=== PATIENT | female | born 1990 | race African-American/Black ===

== ENCOUNTER 2016-05-22 21:28 | Emergency (ER) | payer MEDICAID, OTHER ==
[~2016-05-22] VITALS: Ht 165.1 cm; Wt 112.5 kg
[~2016-05-22 21:28] MED LIST: AZITHROMYCIN250 MG ORAL; CIPRO500 MG PO; CYCLOBENZAPRINE10 MG ORAL; DOXYCYCLINE MO100 MG ORAL; MACROBID100 MG ORAL; METRONIDAZOLE500 MG ORAL; NKM; PEPCID20 MG ORAL; PRENATAL 19 TA1 EAC1 PO; PROMETHAZINE-D118 ML ORAL; ZITHROMAX250 MG ORAL
[2016-05-22 23:06] VITALS: BP 107/73
[2016-05-22 23:33] VITALS: BP 107/73
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
== END 2016-05-22 23:33 | disposition left against medical advice (07) ==
LOC: EMR 22:14
DX: O26.892 Other specified pregnancy related conditions, second trimester (principal); Z3A.00 Weeks of gestation of pregnancy not specified; R10.30 Lower abdominal pain, unspecified; V43.52XA Car driver injured in collision with other type car in traffic accident, initial encounter; Y92.488 Other paved roadways as the place of occurrence of the external cause; Z88.0 Allergy status to penicillin
CPT/HCPCS: 99282

== ENCOUNTER 2016-11-14 00:15 | Emergency (ER) | payer MEDICAID ==
[~2016-11-14] VITALS: Ht 165.1 cm; Wt 109.8 kg
[2016-11-14 00:23] VITALS: BP 98/62
[2016-11-14] MEDS ORDERED: TYLENOL COLD &1 EAC1 PO (00:48)
[2016-11-14 01:08] VITALS: BP 98/62
--- NOTE | 2016-11-14 03:43 | Emergency Room Report ---
History of Present Illness General Chief Complaint: Sore Throat Source: Patient Present Illness HPI 26-year-old female presents to ED for evaluation. Patient states for one day she has had runny nose, cough and congestion. Denies any fevers or chills. States that many members of the family have similar symptoms. Denies any sore throat or ear ache. Cough is productive with yellowish phlegm. No other aggravating or relieving factors. Denies any other associated symptoms Allergies: Coded Allergies: PENICILLINS (Unverified Allergy, Severe, 08/29/14) Patient History Past Medical History: none Past Surgical History: none Pertinent Family History: none Social History: Denies: alcohol use, drug use, smoking Last Menstrual Period: 2 weeks ago Now: No Immunizations: UTD Reviewed Nursing Documentation: PMH: Agreed, PSxH: Agreed Nursing Documentation-PMH Past Medical History: No Stated History Hx Hypertension: No Hx Diabetes: No Hx Dialysis: No - UTI 05/2015 Review of Systems All Other Systems: negative except mentioned in HPI Physical Exam Vital Signs Date Time Temp Pulse Resp B/P Pulse Ox O2 Delivery O2 Flow Rate FiO2 11/14/16 00:19 98.2 73 18 98/62 98 Room Air Sp02 EP Interpretation: reviewed, normal General Appearance: no apparent distress, alert, GCS 15, non-toxic Head: normocephalic, atraumatic Eyes: bilateral eye PERRL, bilateral eye normal inspection ENT: hearing grossly normal, normal pharynx, no angioedema, normal voice Neck: full range of motion, supple/symm/no masses Respiratory: chest non-tender, lungs clear, normal breath sounds, speaking full sentences Cardiovascular #1: regular rate, rhythm, no edema Cardiovascular #2: 2+ carotid (R), 2+ carotid (L), 2+ radial (R), 2+ radial (L) , 2+ dorsalis pedis (R), 2+ dorsalis pedis (L) Gastrointestinal: normal bowel sounds, non tender, soft, non-distended, no guarding, no rebound Rectal: deferred Genitourinary: normal inspection, no CVA tenderness Musculoskeletal: back normal, gait/station normal, normal range of motion, non- tender Neurologic: alert, oriented x3, responsive, motor strength/tone normal, sensory intact, speech normal Psychiatric: judgement/insight normal, memory normal, mood/affect normal, no suicidal/homicidal ideation Reflexes: 3+ bicep (R), 3+ bicep (L), 3+ tricep (R), 3+ tricep (L), 3+ knee (R) , 3+ knee (L) Skin: normal color, no rash, warm/dry, well hydrated Lymphatic: no adenopathy Medical Decision Making Diagnostic Impression: Primary Impression: Upper respiratory infection Qualified Codes: J06.9 - Acute upper respiratory infection, unspecified ER Course Hospital Course 26year-old female presents to ED complaining of cough, runny nose with congestion Differential diagnoses include: URI, pharyngitis, otitis media, asthma Clinical course Patient placed on stretcher. After initial history, physical exam reveals a female in no acute distress. Bilateral TM unremarkable. No pharyngeal erythema. No tonsillar exudates. No lymphadenopathy. lungs clear. abdomen soft. Clinical findings consistent with URI. Reassurance given. treatment is supportive therapy Diagnosis - URI Stable and discharged home with Rx Tylenol cold/flu. Instructed to followup with PMD. Return to ED if symptoms recur or worsen Last Vital Signs Date Time Temp Pulse Resp B/P Pulse Ox O2 Delivery O2 Flow Rate FiO2 11/14/16 01:08 98.2 73 18 98/62 98 Room Air Status: improved Disposition: HOME, SELF-CARE Condition: Stable Scripts Phenylephrine/Dm/Acetaminop/Gg (TYLENOL COLD & FLU SEVERE CPLT) 1 Each Tablet 1 EACH PO Q4HR, #30 TAB Prov: AMISHA GARCIA M.D. 11/14/16 Referrals: [facility] (PCP) Patient Instructions: Upper Respiratory Infection, Adult, [id number] AMISHA GARCIA M.D. Nov 14, 2016 03:43
== END 2016-11-14 01:08 | disposition home or self-care (01) ==
LOC: EMR 00:36
DX: J06.9 Acute upper respiratory infection, unspecified (principal); Z88.0 Allergy status to penicillin
CPT/HCPCS: 99283

== ENCOUNTER 2017-05-24 18:41 | Emergency (ER) | payer MEDICAID ==
[~2017-05-24] VITALS: Ht 160 cm; Wt 117.9 kg
[~2017-05-24 18:41] MED LIST changes: +TYLENOL COLD &1 EAC1 PO
[2017-05-24] MEDS ORDERED: Lidocaine 1% MPF 10mg/ml 5ml INJ ONE (19:00)
[2017-05-24] MEDS ORDERED: BACITRACIN15 GM TOPIC (19:37)
[2017-05-24] MEDS ORDERED: IBUPROFEN600 MG ORAL (19:37)
[2017-05-24] MEDS ORDERED: Bacitracin Oint UD TOPIC ONE (19:45)
[2017-05-24 21:00] VITALS: BP 125/88
--- NOTE | 2017-05-24 22:11 | Emergency Room Report ---
History of Present Illness General Chief Complaint: Pain Source: Patient Present Illness HPI The patient is a 26-year-old female presenting for toe pain which began 2 weeks ago. She thinks she has ingrown toenails. Pain is a 6/10 dull ache to the nail folds of both big toes. She denies any injury, discharge, or bleeding. Pain does not radiate. She denies fever or chills Allergies: Coded Allergies: PENICILLINS (Unverified Allergy, Severe, 08/29/14) Patient History Past Medical History: see triage record Pertinent Family History: none Last Menstrual Period: 05/14/17 Now: No Reviewed Nursing Documentation: PMH: Agreed, PSxH: Agreed Nursing Documentation-PMH Hx Hypertension: No Hx Diabetes: No Review of Systems All Other Systems: negative except mentioned in HPI Physical Exam Vital Signs Date Time Temp Pulse Resp B/P (MAP) Pulse Ox O2 Delivery O2 Flow Rate FiO2 05/24/17 18:47 98.2 113 17 125/88 100 Room Air Sp02 EP Interpretation: reviewed, normal General Appearance: no apparent distress, alert, GCS 15, non-toxic Head: normocephalic, atraumatic Eyes: bilateral eye normal inspection, bilateral eye PERRL Musculoskeletal: back normal, gait/station normal, normal range of motion, non- tender Neurologic: alert, oriented x3, responsive, motor strength/tone normal, sensory intact, speech normal Psychiatric: judgement/insight normal, memory normal, mood/affect normal, no suicidal/homicidal ideation Skin: other - erythema to bilat 1st medial nailfolds Procedures Additional Procedure Procedure Narrative Partial toenail removal: Digital block was placed using 4mL of 1% lidocaine w/o epi. Area cleaned with betadine. Straight forceps and scissors used to remove and cut away medial portion of nail. Minimal bleeding controlled. Area again cleaned with NS and betadine. Bacitracin placed and wrapped with sterile dressing. The patient will be HI'ed home with pain medication and bacitracin. ER precautions given Medical Decision Making PA Attestation Dr. Walsh is my supervising physician. Patient management was discussed with my supervising physician Diagnostic Impression: Primary Impression: Ingrown nail of great toe of right foot Additional Impression: Ingrown nail of great toe of left foot ER Course The patient is a 26-year-old female presenting for toe pain which began 2 weeks ago. erythema to bilat 1st medial nailfold Partial toenail removal: Digital block was placed using 4mL of 1% lidocaine w/o epi. Area cleaned with betadine. Straight forceps and scissors used to remove and cut away medial portion of nail. Minimal bleeding controlled. Area again cleaned with NS and betadine. Bacitracin placed and wrapped with sterile dressing. [facility] pain medication and bacitracin. ER precautions given Last Vital Signs Date Time Temp Pulse Resp B/P (MAP) Pulse Ox O2 Delivery O2 Flow Rate FiO2 05/24/17 18:47 98.2 113 17 125/88 100 Room Air Status: improved Disposition: HOME, SELF-CARE Condition: Improved Scripts Ibuprofen* (MOTRIN*) 600 Mg Tablet 600 MG ORAL Q8H Y for For Pain, #30 TAB 0 Refills Prov: CELINA LANE 05/24/17 Bacitracin (Bacitracin) 28.4 Gm Oint...g. 1 APPLIC TOPIC THREE TIMES A DAY, #28 GM Prov: CELNIA LANE 05/24/17 Patient Instructions: Ingrown Toenail Additional Instructions: I discussed my findings with the patient. All questions and concerns have been answered. Treatment and medication compliance have been addressed. I advised the patient that they need to follow up with PMD in 3-5 days. Return to ED if symptoms worsen, new symptoms arise, or if needed for any reason. Patient verbalized understanding of discharge instructions. CELINA LANE May 24, 2017 22:11
== END 2017-05-24 21:00 | disposition home or self-care (01) ==
LOC: EMR 19:19
DX: L60.0 Ingrowing nail (principal); Z88.0 Allergy status to penicillin
CPT/HCPCS: 99284

== ENCOUNTER 2017-07-23 18:17 | Emergency (ER) | payer MEDICAID ==
[~2017-07-23] VITALS: Ht 165.1 cm; Wt 117.9 kg
[~2017-07-23 18:17] MED LIST changes: +BACITRACIN15 GM TOPIC; +IBUPROFEN600 MG ORAL
--- NOTE | 2017-07-23 18:52 | Emergency Room Report ---
History of Present Illness General Chief Complaint: Skin Rash/Abscess Source: Patient, Medical Record Present Illness HPI 26-year-old female presents to the emergency department complaining of 10 out of 10 in severity pain is localized to the medial aspect of the right hand times one day. Patient reports erythema, swelling and tenderness. Patient denies itching. Patient denies fevers or chills. Denies lesions/rashes elsewhere on the body. Denies new medications or body washes or creams. Denies swelling of the lips, tongue , throat or airway. Denies wheezing, or shortness of breath. Denies recent travel, recent illness or ill contacts. denies blisters, oral lesions, or sloughing of the skin. Pt. is right hand dominant. Allergies: Coded Allergies: PENICILLINS (Unverified Allergy, Severe, 08/29/14) Patient History Past Medical History: see triage record Past Surgical History: none Pertinent Family History: none Last Menstrual Period: 07/09/17 Now: No Reviewed Nursing Documentation: PMH: Agreed, PSxH: Agreed Nursing Documentation-PMH Past Medical History: No History, Except For Hx Hypertension: No Hx Diabetes: No Review of Systems All Other Systems: negative except mentioned in HPI Physical Exam Vital Signs Date Time Temp Pulse Resp B/P (MAP) Pulse Ox O2 Delivery O2 Flow Rate FiO2 07/23/17 18:24 98.3 93 18 93/64 99 Room Air 98.2 Sp02 EP Interpretation: reviewed, normal General Appearance: no apparent distress, alert, GCS 15, non-toxic Head: normocephalic, atraumatic ENT: hearing grossly normal, normal voice Neck: full range of motion Respiratory: lungs clear, normal breath sounds, speaking full sentences Cardiovascular #1: regular rate, rhythm, normal capillary refill Musculoskeletal: back normal, gait/station normal, normal range of motion, tender - ttp to the dorsum of the right hand on top of the erythematous area. Neurologic: alert, oriented x3, responsive, motor strength/tone normal, sensory intact, speech normal, grossly normal Psychiatric: judgement/insight normal Skin: no rash, warm/dry, well hydrated, other - Nonfluctuant 1 cm abscess to the dorsum of the right hand. Medical Decision Making PA Attestation Dr. Jules is my supervising Physician whom patient management has been discussed with. Diagnostic Impression: Primary Impression: Cellulitis Qualified Codes: L03.113 - Cellulitis of right upper limb Additional Impression: Cellulitis and abscess of hand ER Course 26-year-old female presents to the emergency department complaining of 10 out of 10 in severity pain is localized to the medial aspect of the right hand times one day. Patient reports erythema, swelling and tenderness. Patient denies itching. Patient denies fevers or chills. Denies lesions/rashes elsewhere on the body. Denies new medications or body washes or creams. Denies swelling of the lips, tongue , throat or airway. Denies wheezing, or shortness of breath. Denies recent travel, recent illness or ill contacts. denies blisters, oral lesions, or sloughing of the skin. Pt. is right hand dominant. Ddx considered but are not limited to cellulitis, abscess, cystic acne, necrotizing fasciitis, insect bite. Vital signs: are WNL, pt. is afebrile H&PE are most consistent with Nonfluctuant 1 cm abscess to the dorsum of the right hand. ORDERS: none required at this time, the diagnosis is clinical ED INTERVENTIONS: - no fluctuance and no significant induration. DISCHARGE: At this time pt. is stable for d/c to home. Will provide printed patient care instructions, and any necessary prescriptions. Care plan and follow up instructions have been discussed with the patient prior to discharge. Last Vital Signs Date Time Temp Pulse Resp B/P (MAP) Pulse Ox O2 Delivery O2 Flow Rate FiO2 07/23/17 18:24 98.3 93 18 93/64 99 Room Air 98.2 Disposition: HOME, SELF-CARE Condition: Stable Scripts Acetaminophen* (TYLENOL EXTRA STRENGTH*) 500 Mg Tablet 500 MG ORAL Q8H, #20 TAB 0 Refills Prov: Lynsey Rosario P.A. 07/23/17 Mupirocin* (MUPIROCIN*) 22 Gm Oint...g. 1 APPLIC TOPIC THREE TIMES A DAY, #22 GM Prov: Lynsey Rosario P.A. 07/23/17 Trimethoprim/Sulfamethoxazole 160/800* (BACTRIM DS TABLET*) 1 Each Tablet 1 TAB ORAL TWICE A DAY for 7 Days, #14 TAB Prov: Lynsey Rosario P.A. 07/23/17 Cephalexin* (KEFLEX*) 500 Mg Capsule 500 MG ORAL EVERY 12 HOURS for 7 Days, #14 CAP 0 Refills Prov: Lynsey Rosario 07/23/17 Referrals: [facility] (PCP) Departure Forms: Return to Work Return to Work Date: Jul 27, 2017 Work Restrictions: No Heavy Lifting Other Restrictions: limited use of right hand x 1 week, keep covered. Return to Full Activity: Aug 03, 2017 Patient Instructions: Abscess Additional Instructions: Take medications as directed. Follow up with a Primary Care Provider in 3-5 days, even if your symptoms have resolved. --Please review list of primary care clinics, if you do not already have a primary care provider Return sooner to ED if new symptoms occur, or current symptoms become worse. - Please note that this Emergency Department Report was dictated using [employer] technology software, occasionally this can lead to erroneous entry secondary to interpretation by the dictation equipment. Lynsey Rosario Jul 23, 2017 18:52
[2017-07-23] MEDS ORDERED: MUPIROCIN22 GM TOPIC (18:54)
[2017-07-23] MEDS ORDERED: CEPHALEXIN500 MG ORAL (18:54)
[2017-07-23] MEDS ORDERED: BACTRIM DS TAB1 EAC1 ORAL (18:54)
[2017-07-23] MEDS ORDERED: TYLENOL EXTRA500 MG ORAL (18:54)
[2017-07-23 19:09] VITALS: BP 124/83
== END 2017-07-23 19:09 | disposition home or self-care (01) ==
LOC: EMR 18:34
DX: L03.113 Cellulitis of right upper limb (principal); Z88.0 Allergy status to penicillin
CPT/HCPCS: 99284

== ENCOUNTER 2017-08-04 04:46 | Emergency (ER) | payer MEDICAID ==
[~2017-08-04] VITALS: Ht 165.1 cm; Wt 118.4 kg
[~2017-08-04 04:46] MED LIST changes: +BACTRIM DS TAB1 EAC1 ORAL; +CEPHALEXIN500 MG ORAL; +MUPIROCIN22 GM TOPIC; +TYLENOL EXTRA500 MG ORAL
[2017-08-04 05:05] VITALS: BP 130/79
[2017-08-04] MEDS ORDERED: Ketorolac 60mg Inj IM ONE (05:15)
[2017-08-04 05:26] LABS: APPEARANCE,URINE CLEAR; BILIRUBIN, URINE NEGATIVE (NEGATIVE); GLUCOSE, URINE (UA) NEGATIVE (NEGATIVE); KETONES,URINE NEGATIVE (NEGATIVE); LEUKOCYTE ESTERASE ,URINE NEGATIVE (NEGATIVE); NITRITE,URINE NEGATIVE (NEGATIVE); PH,URINE 5 (4.5-8.0); PROTEIN,URINE 1+ (NEGATIVE); UROBILINOGEN,URINE NORMAL MG/DL (0.0-1.0)
--- NOTE | 2017-08-04 05:31 | Emergency Room Report ---
History of Present Illness General Chief Complaint: Female Urogenital Problems Source: Patient Present Illness HPI Is a 26-year-old female with no significant past medical history. She presents with 2 chief complaint. First one is vaginal itching and dysuria for the last to 3 days. No discharge. No nausea no vomiting. History of Trichomonas. She is sexually active but uses protection all the time since the of her child. She is not breast-feeding. Second complaint is headache. Has been ongoing for 2 days. Midforehead. Throbbing in nature. No relief with Motrin or sleeping. No nausea no vomiting. Fever chills. No upper respiratory or infection. Allergies: Coded Allergies: PENICILLINS (Unverified Allergy, Severe, 08/29/14) Patient History Past Medical History: see triage record, old chart reviewed Past Surgical History: other Pertinent Family History: none Social History: Denies: smoking Last Menstrual Period: 3rd wk of Jun Now: No Immunizations: other Reviewed Nursing Documentation: PMH: Agreed, PSxH: Agreed Nursing Documentation-PMH Hx Hypertension: No Hx Diabetes: No Review of Systems Eye: Denies: eye pain, blurred vision ENT: Denies: ear pain, nose congestion, throat swelling Respiratory: Denies: cough, shortness of breath Cardiovascular: Denies: chest pain, palpitations Gastrointestinal: Denies: abdominal pain, diarrhea, nausea, vomiting Genitourinary: Reports: dysuria Musculoskeletal: Denies: back pain, joint pain Skin: Denies: rash Neurological: Reports: headache, Denies: numbness Endocrine: Denies: increased thirst, increased urine Hematologic/Lymphatic: Denies: easy bruising All Other Systems: negative except mentioned in HPI Physical Exam Vital Signs Date Time Temp Pulse Resp B/P (MAP) Pulse Ox O2 Delivery O2 Flow Rate FiO2 08/04/17 04:47 98.5 90 16 132/81 96 Room Air 98.4 vitals normal Sp02 EP Interpretation: reviewed, normal General Appearance: well appearing, no apparent distress, alert Head: normocephalic, atraumatic Eyes: bilateral eye PERRL, bilateral eye EOMI ENT: hearing grossly normal, normal pharynx Neck: full range of motion, supple, no meningismus Respiratory: chest non-tender, lungs clear, normal breath sounds Cardiovascular #1: regular rate, rhythm, no murmur Gastrointestinal: normal bowel sounds, non tender, no mass, no organomegaly, no bruit, non-distended Genitourinary: other - 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 External exam is normal. An toenail exam show whitish green discharge. No cervical motion tenderness. No adnexal tenderness. Musculoskeletal: back normal, gait/station normal, normal range of motion Psychiatric: mood/affect normal Skin: warm/dry Medical Decision Making Diagnostic Impression: Primary Impression: Acute cervicitis Additional Impression: Headache Qualified Codes: R51 - Headache ER Course Patient presents with a cervicitis. She does have a discharge with a lot of doctor on the [place]. No evidence of Trichomonas, bacterial vaginosis or yeast infection. We'll go ahead and treat for possible gonorrhea and chlamydia. Recommend outpatient testing for HIV, hepatitis, syphilis and other STD. As far as her headache, no evidence of meningitis, bleed, or neoplastic process. We'll discharge home. Last Vital Signs Date Time Temp Pulse Resp B/P (MAP) Pulse Ox O2 Delivery O2 Flow Rate FiO2 08/04/17 04:47 98.5 90 16 132/81 96 Room Air 98.4 Status: improved Disposition: HOME, SELF-CARE Condition: Stable Scripts Tramadol Hcl* (ULTRAM*) 50 Mg Tablet 50 MG ORAL Q6H Y for For Pain, #20 TAB 0 Refills Prov: KEDAR SIEGEL M.D. 08/04/17 Referrals: [facility] (PCP) Patient Instructions: Vaginitis Additional Instructions: Follow-up your doctor in 7 days. Recommend outpatient testing for HIV, hepatitis, syphilis and other STDs. Recommend Pap smear. Return if worse. KEDAR SIEGEL M.D. Aug 04, 2017 05:31
[2017-08-04 05:33] LABS: COLOR,URINE YELLOW
[2017-08-04] MEDS ORDERED: TRAMADOL HCL50 MG ORAL (05:51)
[2017-08-04 06:00] VITALS: BP 128/78
[2017-08-04] MEDS ORDERED: Azithromycin 250mg tab ORAL ONE (06:00)
[2017-08-04] MEDS ORDERED: Lidocaine 1% MPF 10mg/ml 5ml INJ ONE (06:00)
[2017-08-04 06:05] VITALS: BP 128/78
== END 2017-08-04 06:05 | disposition home or self-care (01) ==
LOC: EMR 05:09
DX: N72 Inflammatory disease of cervix uteri (principal); R51 Headache; Z88.0 Allergy status to penicillin
CPT/HCPCS: 81003; 81025; 87210; 96372; 99283; J0696; Q0144

== ENCOUNTER 2017-10-11 17:44 | Emergency (ER) | payer MEDICAID ==
[~2017-10-11] VITALS: Ht 162.6 cm; Wt 119.3 kg
[~2017-10-11 17:44] MED LIST changes: +TRAMADOL HCL50 MG ORAL
[2017-10-11] MEDS ORDERED: NKM (17:52)
[2017-10-11 18:04] VITALS: BP 93/59
--- NOTE | 2017-10-11 18:26 | Emergency Room Report ---
History of Present Illness General Chief Complaint: Skin Rash/Abscess Source: Patient Present Illness HPI 27 y.o. AA F, with no sig pmhx, here c/o 2 days of a painful pruretic swelling in right lateral upper arm and right lateral upper thigh. pt reports pain aching upon palpation of swelling, no radiation, no tingling/numbness, pain 4/10 , has not taken pain meds. 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 denies pus drainage from lesions. Allergies: Coded Allergies: PENICILLINS (Unverified Allergy, Severe, 08/29/14) Patient History Past Medical History: see triage record Past Surgical History: none Pertinent Family History: unable to obtain Last Menstrual Period: 10/05/2017 Now: No Immunizations: UTD Reviewed Nursing Documentation: PMH: Agreed; PSxH: Agreed Nursing Documentation-PMH Past Medical History: No Stated History Hx Hypertension: No Hx Diabetes: No Review of Systems All Other Systems: negative except mentioned in HPI Physical Exam Vital Signs Date Time Temp Pulse Resp B/P (MAP) Pulse Ox O2 Delivery O2 Flow Rate FiO2 10/11/17 17:47 98.4 102 18 93/59 94 Room Air 98.4 Sp02 EP Interpretation: reviewed, normal General Appearance: normal inspection, well appearing, no apparent distress, alert, GCS 15 Head: normocephalic Eyes: bilateral eye normal inspection, bilateral eye PERRL ENT: normal ENT inspection, hearing grossly normal, normal pharynx, no angioedema Neck: normal inspection, full range of motion, supple Respiratory: normal inspection, chest non-tender, lungs clear, normal breath sounds, no rhonchi, no respiratory distress, no retraction, no accessory muscle use, no wheezing Cardiovascular #1: normal inspection, normal peripheral pulses, regular rate, rhythm, no edema, no gallop, no murmur, no rub, normal capillary refill Cardiovascular #2: 2+ radial (R), 2+ radial (L), 2+ femoral (R), 2+ femoral (L) Gastrointestinal: normal inspection, normal bowel sounds, non tender, soft Rectal: deferred Genitourinary: deferred Musculoskeletal: back normal, inflammation - a 0.25cm bite on right lateral thigh, erythema and edema around it, no pus, also 0.25cm bite on right posteriorlateral upper arm, with surrounding erythema/edema, no pus Neurologic: normal inspection, alert, oriented x3, responsive Psychiatric: normal inspection, judgement/insight normal, mood/affect normal Skin: warm/dry, palpation normal, well hydrated, rash - a 0.25cm bite(possible spider bite) on right lateral thigh and one 0.25cm bite on right posteriolateral upper arm with surrounding edema and erythema, no abscess, no puss formation warm to touch, no mass Lymphatic: normal inspection, no adenopathy Medical Decision Making PA Attestation all dx, PE, orders, tx plans reviewed and approved by my supervising physician Dr. Walsh Reaction to Intervention: Improved Diagnostic Impression: Primary Impression: Insect bite Additional Impression: Skin infection ER Course 27 y.o. AA F, with no sig pmhx, here c/o 2 days of a painful pruretic swelling in right lateral upper arm and right lateral upper thigh. pt reports pain aching upon palpation of swelling, no radiation, no tingling/numbness, pain 4/10 , has not taken pain meds. 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 denies pus drainage from lesions. Ddx considered but are not limited to skin infection secondary to insect bite, abscess, allergic reaction Vital signs: are WNL, pt. is afebrile H&PE are most consistent with skin infx secondary to insect bite ORDERS: CBC with diff to r/o systemic infx ED INTERVENTIONS: None required at this time. DISCHARGE: At this time pt. is stable for d/c to home. Will provide printed patient care instructions, and any necessary prescriptions. Care plan and follow up instructions have been discussed with the patient prior to discharge. CBC with diff Lab Results Impression WNL no sign of systemic infx Last Vital Signs Date Time Temp Pulse Resp B/P (MAP) Pulse Ox O2 Delivery O2 Flow Rate FiO2 10/11/17 18:04 98.4 102 18 93/59 94 Room Air 98.4 Status: improved Disposition: HOME, SELF-CARE Condition: Stable Scripts Mupirocin Calcium (Bactroban) 15 Gm Cream..g. 1 APPLIC TOPIC THREE TIMES A DAY for 7 Days, #1 GM Prov: Elsy Barfield P.A. 10/11/17 Hydrocortisone Acetate 1% Onit (HYDROCORTISONE 1% OINT) Y Oint 28 GM TP NEEDED for 7 Days, #1 GM Prov: Elsy Barfield P.A. 10/11/17 Ibuprofen* (MOTRIN*) 400 Mg Tablet 400 MG ORAL Q6H, #30 TAB 0 Refills Prov: Elsy Barfield.A. 10/11/17 Cephalexin* (KEFLEX*) 500 Mg Capsule 500 MG ORAL EVERY 12 HOURS for 10 Days, #20 CAP 0 Refills Prov: Elsy Barfield.A. 10/11/17 Trimethoprim/Sulfamethoxazole (Bactrim Ds Tablet) 1 Each Tablet 1 TAB ORAL TWICE A DAY for 10 Days, #20 TAB Prov: Elsy Barfield P.A. 10/11/17 Patient Instructions: Abscess Additional Instructions: avoid excessive pressure on swelling, take abx as directed(pt has amoxicillin allergy(hives) does not recall taking Keflex before, told if she start getting hives, no keflex as it is in betalactamase family, pt denies anaphylaxis or sob due to amoxicillin use abx ointment on lesion on the thigh use hydrocortisone cream as needed for pruritis on lesion on the arm only change sheets and wash all clothes if pulsatile pain, radiating pain, fever/chills return to ED Elsy Barfield October 11, 2017 18:26
[2017-10-11 18:36] LABS: EOSINOPHILS % (AUTO) 1.6 % (0.0-3.0); HEMATOCRIT 42.3 % (37.0-47.0); LYMPHOCYTES % (AUTO) 20.5 % (20.0-45.0); MEAN CORPUSCULAR VOLUME 88 FL (80-99); MONOCYTES % (AUTO) 9.7 % (1.0-10.0); NEUTROPHILS % (AUTO) 67.1 % (45.0-75.0); PLATELET COUNT 190 K/UL (150-450); RED BLOOD COUNT 4.82 M/UL (4.20-5.40); RED CELL DISTRIBUTION WIDTH 12.4 % (11.6-14.8); WHITE BLOOD COUNT 9.7 K/UL (4.8-10.8)
[2017-10-11] MEDS ORDERED: BACTRIM-DS1 EA ORAL (18:52)
[2017-10-11] MEDS ORDERED: IBUPROFEN400 MG ORAL (18:52)
[2017-10-11] MEDS ORDERED: CEPHALEXIN500 MG ORAL (18:52)
[2017-10-11] MEDS ORDERED: HYDROCORTISONE28 G2 TP (18:52)
[2017-10-11] MEDS ORDERED: BACTROBAN CR1 APPLIC TOPIC (18:53)
[2017-10-11 19:11] VITALS: BP 145/42
== END 2017-10-11 19:13 | disposition home or self-care (01) ==
LOC: EMR 18:47
DX: S70.361A Insect bite (nonvenomous), right thigh, initial encounter (principal); S40.861A Insect bite (nonvenomous) of right upper arm, initial encounter; L08.9 Local infection of the skin and subcutaneous tissue, unspecified; W57.XXXA Bitten or stung by nonvenomous insect and other nonvenomous arthropods, initial encounter; Y92.9 Unspecified place or not applicable
CPT/HCPCS: 36415; 85025; 99284

== ENCOUNTER 2017-11-21 17:55 | Emergency (ER) | payer MEDICAID ==
[~2017-11-21] VITALS: Ht 165.1 cm; Wt 118.8 kg
[~2017-11-21 17:55] MED LIST changes: +BACTRIM-DS1 EA ORAL; +BACTROBAN CR1 APPLIC TOPIC; +HYDROCORTISONE28 G2 TP; +IBUPROFEN400 MG ORAL
[2017-11-21 18:13] VITALS: BP 120/60
--- NOTE | 2017-11-21 18:38 | Emergency Room Report ---
History of Present Illness General Chief Complaint: Earache Source: Patient Present Illness HPI 27-year-old female presents emergency department complaining of 8/10 in severity left-sided ear pain 2 days. She reports subjective fevers and nasal congestion. Denies neck pain or stiffness. Denies ear discharge, changes in her hearing, tinnitus or tenderness to the external ear. Patient states that she tried some Debrox with no relief. Denies cough. Denies CP, Palpitations, LOC, AMS, dizziness, Changes in Vision, Sensation, paresthesias, or a sudden severe headache. Allergies: Coded Allergies: PENICILLINS (Unverified Allergy, Severe, 08/29/14) Patient History Past Medical History: see triage record Past Surgical History: none Pertinent Family History: none Last Menstrual Period: 11/02/17 Now: No : 1 Para: 1 Reviewed Nursing Documentation: PMH: Agreed; PSxH: Agreed Nursing Documentation-PMH Past Medical History: No Stated History Hx Hypertension: No Hx Diabetes: No Review of Systems All Other Systems: negative except mentioned in HPI Physical Exam Vital Signs Date Time Temp Pulse Resp B/P (MAP) Pulse Ox O2 Delivery O2 Flow Rate FiO2 11/21/17 18:02 98.7 104 20 120/60 96 Room Air 98.8 Sp02 EP Interpretation: reviewed, normal General Appearance: no apparent distress, alert, GCS 15, non-toxic Head: normocephalic, atraumatic Eyes: bilateral eye normal inspection, bilateral eye PERRL ENT: hearing grossly normal, normal voice, nasal congestion, other - Left TM is erythematous and bulging. Neck: full range of motion Respiratory: lungs clear, normal breath sounds, speaking full sentences Cardiovascular #1: regular rate, rhythm Musculoskeletal: back normal, gait/station normal, normal range of motion, non- tender Neurologic: alert, oriented x3, responsive, motor strength/tone normal, sensory intact, normal gait, speech normal, grossly normal Psychiatric: judgement/insight normal Skin: normal color, no rash, warm/dry, well hydrated Lymphatic: no adenopathy Medical Decision Making PA Attestation Dr. Driscoll is my supervising Physician whom patient management has been discussed with. Diagnostic Impression: Primary Impression: Otitis media Qualified Codes: H66.002 - Acute suppurative otitis media without spontaneous rupture of ear drum, left ear ER Course 27-year-old female presents emergency department complaining of 8/10 in severity left-sided ear pain 2 days. She reports subjective fevers and nasal congestion. Denies neck pain or stiffness. Denies ear discharge, changes in her hearing, tinnitus or tenderness to the external ear. Patient states that she tried some Debrox with no relief. Denies cough. Denies CP, Palpitations, LOC, AMS, dizziness, Changes in Vision, Sensation, paresthesias, or a sudden severe headache. Ddx considered but are not limited to OM, OE, mastoiditis, TM perforation, FB Vital signs: are WNL, pt. is afebrile H&PE are most consistent with otitis media ORDERS: none required at this time, the diagnosis is clinical -OTOSCOPY: Left TM is erythematous and bulging. ED INTERVENTIONS: None required at this time. DISCHARGE: At this time pt. is stable for d/c to home. With PO ABX. Will provide printed patient care instructions, and any necessary prescriptions. Care plan and follow up instructions have been discussed with the patient prior to discharge. Last Vital Signs Date Time Temp Pulse Resp B/P (MAP) Pulse Ox O2 Delivery O2 Flow Rate FiO2 11/21/17 18:13 98.8 76 20 120/60 96 Room Air 98.8 Disposition: HOME, SELF-CARE Condition: Stable Scripts Pseudoephedrine Hcl* (NEXAFED*) 30 Mg Tablet 30 MG ORAL Q6H PRN for congestion, #12 TAB Prov: Lynsey Rosario 11/21/17 Acetaminophen* (TYLENOL EXTRA STRENGTH*) 500 Mg Tablet 500 MG ORAL Q6H PRN for Mild Pain/Temp > 100.5, #20 TAB 0 Refills Prov: Lynsey Rosario 11/21/17 Azithromycin* (ZITHROMAX*) 250 Mg Tablet 250 MG ORAL DAILY, #6 TAB 0 Refills Take two tables once daily for 1 day, then one tablet once daily for 4 days. Prov: Lynsey Rosario 11/21/17 Patient Instructions: Earache, Otitis Media, Adult, [id number] Additional Instructions: Take medications as directed. Follow up with a Primary Care Provider in 3-5 days, even if your symptoms have resolved. --Please review list of primary care clinics, if you do not already have a primary care provider Return sooner to ED if new symptoms occur, or current symptoms become worse. - Please note that this Emergency Department Report was dictated using Hinacomrubber worker technology software, occasionally this can lead to erroneous entry secondary to interpretation by the dictation equipment. Lynsey Rosario Nov 21, 2017 18:38
[2017-11-21] MEDS ORDERED: NEXAFED30 MG ORAL (18:40)
[2017-11-21] MEDS ORDERED: TYLENOL EXTRA500 MG ORAL (18:40)
[2017-11-21] MEDS ORDERED: ZITHROMAX250 MG ORAL (18:40)
[2017-11-21 18:47] VITALS: BP 120/60
== END 2017-11-21 18:47 | disposition home or self-care (01) ==
LOC: EMR 18:45
DX: H66.92 Otitis media, unspecified, left ear (principal); Z88.0 Allergy status to penicillin
CPT/HCPCS: 99284

== ENCOUNTER 2018-08-21 13:56 | Emergency (ER) | payer MEDICAID ==
[~2018-08-21] VITALS: Ht 167.6 cm; Wt 119.3 kg
[~2018-08-21 13:56] MED LIST changes: +NEXAFED30 MG ORAL
[2018-08-21 14:15] VITALS: BP 135/81
--- NOTE | 2018-08-21 14:30 | Emergency Room Report ---
History of Present Illness General Chief Complaint: Skin Rash/Abscess Source: Patient Present Illness HPI 27-year-old female patient presents the ER complaining of rash on her bilateral armpits for the past 2 weeks. Reports history of similar symptoms in the past. States that it may be related to her deodorant use. States symptoms began after changing her deodorant, states symptoms previously were after changing her deodorant. Reports pruritus. Reports that she shaves her armpits. Denies drainage. States that she applied hydrogen peroxide at home. Denies fever, chest pain, shortness of breath. Denies other aggravating or relieving factors. Allergies: Coded Allergies: PENICILLINS (Unverified Allergy, Severe, 08/29/14) Patient History Past Medical History: see triage record Last Menstrual Period: on period Reviewed Nursing Documentation: PMH: Agreed; PSxH: Agreed Nursing Documentation-PMH Past Medical History: No Stated History Hx Hypertension: No Hx Diabetes: No Review of Systems All Other Systems: negative except mentioned in HPI Physical Exam Vital Signs Date Time Temp Pulse Resp B/P (MAP) Pulse Ox O2 Delivery O2 Flow Rate FiO2 08/21/18 14:06 98.4 91 16 135/81 95 Room Air Sp02 EP Interpretation: reviewed, normal General Appearance: well appearing, no apparent distress, alert, GCS 15, non- toxic Head: normocephalic, atraumatic Eyes: bilateral eye normal inspection, bilateral eye PERRL ENT: hearing grossly normal, normal pharynx, no angioedema, normal voice, uvula midline, moist mucus membranes Neck: full range of motion, no meningismus, no bony tend Respiratory: lungs clear, normal breath sounds, no rhonchi, no respiratory distress, no accessory muscle use, no wheezing, speaking full sentences Cardiovascular #1: regular rate, rhythm, no edema Musculoskeletal: back normal, digits/nails normal, gait/station normal, normal range of motion, non-tender Neurologic: alert, oriented x3, responsive, motor strength/tone normal, sensory intact Psychiatric: mood/affect normal Skin: other - Bilateral armpits: Hyperpigmented papules/plaques, no overlying erythema or edema, no palpable mass, no red streaking Medical Decision Making PA Attestation Dr. Mart is my supervising Physician whom patient management has been discussed with. Diagnostic Impression: Primary Impression: Rash and other nonspecific skin eruption ER Course Pt. presents to the ED c/o rash. Ddx considered but are not limited to hidradenitis suppurativa, abscess, cellulitis, contact dermatitis, folliculitis. Vital signs: are WNL, pt. is afebrile ER COURSE Will folliculitis vs keloid, follow-up with primary care provider. No overlying erythema or edema consistent with cellulitis or abscess, does not require drainage at this time. Low suspicion for cellulitis, does not require oral antibiotics. Advised on warm compresses. Do not shave armpits. Followup with dermatology. ER precautions given. DISCHARGE: At this time pt. is stable for d/c to home. Patient resting comfortably, in no acute distress, nontoxic appearinge. Will provide printed patient care instructions, and any necessary prescriptions. Care plan and follow up instructions have been discussed with the patient prior to discharge. Patient provided with list of healthcare clinics to establish primary care physician. Patient instructed to follow-up with primary care provider in 3 - 5 days. Patient questions asked and answered. ER precautions given. Patient instructed to return to ER immediately for any new or worsening of symptoms including but not limited to increasing SOB, persistent fever. - Please note that this Emergency Department Report was dictated using [employer] Gamess[employer] swallower technology software, occasionally this can lead to erroneous entry secondary to interpretation by the dictation equipment. Last Vital Signs Date Time Temp Pulse Resp B/P (MAP) Pulse Ox O2 Delivery O2 Flow Rate FiO2 08/21/18 14:06 98.4 91 16 135/81 95 Room Air Status: improved Disposition: HOME, SELF-CARE Condition: Stable Scripts Diphenhydramine Hcl* (BENADRYL*) 25 Mg Capsule 25 MG ORAL DAILY PRN for Itching, #30 CAP Prov: Itz Cardenas 08/21/18 Bacitracin/Polymyxin B Sulfate (BACITRACIN-POLYMYXIN OINTMENT) 28.35 Gm Oint...g. 1 APPLIC TP BID, #28 GM Prov: Itz Cardenas 08/21/18 Patient Instructions: Abscess, Hidradenitis Suppurativa, Rash Additional Instructions: Followup with primary care provider in 3 -5 days. Request referral to dermatology as needed. Do not scratch or itch. Apply cool compresses to affected area. Wash all clothes and bedding. Take medications as directed. Do not apply topical steroid medication to face or skin creases. SE Benadryl drowsiness, do not take prior to drinking, driving, operating heavy machinery. Take Claritin during the day and Benadryl at night for itching symptoms. Patient questions asked and answered. ER precautions given, patient instructed to return to ER immediately for any new or worsening of symptoms. [facility] [facility] Itz Cardenas Aug 21, 2018 14:30
[2018-08-21] MEDS ORDERED: BACITRACIN-P28.35 GM TP (14:39)
[2018-08-21] MEDS ORDERED: BENADRYL25 MG ORAL (14:39)
[2018-08-21 15:00] VITALS: BP 135/81
--- NOTE | 2018-08-21 15:00 | NUR ---
Patient was evaluated, treated and discharged with aftercare instructions by MD/PA
== END 2018-08-21 15:00 | disposition home or self-care (01) ==
LOC: EMR 14:30
DX: R21 Rash and other nonspecific skin eruption (principal)
CPT/HCPCS: 99282

== ENCOUNTER 2020-01-05 06:36 | Emergency (ER) | payer MEDICAID ==
[~2020-01-05] VITALS: Ht 165.1 cm; Wt 111.1 kg
[~2020-01-05 06:36] MED LIST changes: +BACITRACIN-P28.35 GM TP; +BENADRYL25 MG ORAL
--- NOTE | 2020-01-05 06:49 | Emergency Room Report ---
History of Present Illness General Chief Complaint: Upper Extremity Injury Source: Patient Present Illness HPI Disclaimer: Please note that this report is being documented using DRAGON technology. This can lead to erroneous entry secondary to incorrect interpretation by the dictating instrument. HPI: 29-year-old [id number] female presents for evaluation of right hand pain. Patient became angry over receiving some bad news yesterday and states she punched a metal locker while at work. Noted pain over the dorsum of the right hand especially over the third, fourth and fifth metacarpal bones and at the base of the right middle finger. Denies numbness or tingling. Able to flex and extend all digits. Denies pain in the thumb or over the anatomic snuffbox. Denies pain in the wrist or forearm, elbow otherwise. No other injury reported. 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 EOMI. Resp: Normal work of breathing Skin: Intact. No abrasions, laceration or rash over the exposed skin MSK: Normal tone and bulk. Moving all extremities. No obvious deformity. No tenderness over anatomic snuffbox. Mild tenderness over the base of the right middle finger without obvious deformity. Able to flex and extend all digits. Mild tenderness over the dorsum of the third, fourth and fifth metacarpals. No deformity. Neuro: Awake and alert. Mentating appropriately. Sensation intact over the radial and ulnar aspect of all digits. Medical Decision Making Diagnostic Impression: Primary Impression: Hand contusion ER Course 29-year-old [id number] female presents for evaluation of right hand pain after punching a locker yesterday. Concern for fracture and x-ray was ordered. No fracture or dislocation identified. Patient feels reassured. She will follow-up with PMD as needed. Can return to work without restriction. Return to the emergency department as needed. Other X-Ray Diagnostic Results Other X-Ray Diagnostic Results : X-Ray ordered: Right hand # of Views/Limited Vs Complete: Complete Indication: Pain EP Interpretation: Yes Interpretation: no dislocation, no soft tissue swelling, no fractures Impression: No acute disease Electronically Signed by: Electronically signed by Dr. Velasquez Lees Last Vital Signs Date Time Temp Pulse Resp B/P (MAP) Pulse Ox O2 Delivery O2 Flow Rate FiO2 01/05/20 06:38 98.4 93 16 127/87 (100) 99 Room Air Disposition: HOME, SELF-CARE Condition: Stable Scripts Ibuprofen* (MOTRIN*) 600 Mg Tablet 600 MG ORAL Q6H PRN for For Pain, #30 TAB 0 Refills Prov: Velasquez Lees MD 01/05/20 Velasquez Lees MD Jan 05, 2020 06:49
[2020-01-05] MEDS ORDERED: IBUPROFEN600 M1 ORAL (06:50)
[2020-01-05 06:54] VITALS: BP 127/87
--- NOTE | 2020-01-05 06:56 | NUR ---
ED Nurse Note: Patient walked in c/o LT hand pain since 01/04 AM. Pt stated she hit a metal object and now has pain on the right hand, third to fifth digit. 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 Patient presented calm, AAO x4, VSS at this time.
[2020-01-05 07:18] VITALS: BP 127/87
--- NOTE | 2020-01-05 07:18 | NUR ---
ED Nurse Note: Pt cleared by health care Provider for discharge. DC instructions/prescription was given and explained to pt and verbalized understanding of teachings. All medical deviecs such as ID band removed. Pt is AAO x4, ambulatory and left with all personal belongings.
--- NOTE | 2020-01-05 17:45 | Diagnostic Imaging Report ---
Indication: Traumatic pain Technique: 3 views right hand Comparison: none Findings: Suboptimal exposure technique. No definite acute fractures. No dislocations. Impression: Limited. No definite acute bony trauma
== END 2020-01-05 07:19 | disposition home or self-care (01) ==
LOC: EMR 06:57
DX: S60.221A Contusion of right hand, initial encounter (principal); W22.8XXA Striking against or struck by other objects, initial encounter; Y92.9 Unspecified place or not applicable; Z88.0 Allergy status to penicillin
CPT/HCPCS: 73130; Z7502; 99283

== ENCOUNTER 2020-01-26 03:24 | Emergency (ER) | payer MEDICAID ==
[~2020-01-26] VITALS: Ht 167.6 cm; Wt 105.7 kg
[~2020-01-26 03:24] MED LIST changes: +ANTI-ITCH28 G1 TP; +IBUPROFEN600 M1 ORAL; +PREDNISONE20 MG ORAL; +WAL-SLEEP Z25 MG PO
[2020-01-26 03:30] VITALS: BP 125/72
[2020-01-26 03:44] LABS: APPEARANCE,URINE CLEAR; BILIRUBIN, URINE NEGATIVE (NEGATIVE); GLUCOSE, URINE (UA) NEGATIVE (NEGATIVE); KETONES,URINE NEGATIVE (NEGATIVE); LEUKOCYTE ESTERASE ,URINE 1+ (NEGATIVE); NITRITE,URINE NEGATIVE (NEGATIVE); PH,URINE 6 (4.5-8.0); PROTEIN,URINE NEGATIVE (NEGATIVE); UROBILINOGEN,URINE NORMAL MG/DL (0.0-1.0)
[2020-01-26 03:47] LABS: COLOR,URINE YELLOW
--- NOTE | 2020-01-26 03:55 | Emergency Room Report ---
History of Present Illness General Chief Complaint: Vaginal Source: Patient Present Illness HPI Disclaimer: Please note that this report is being documented using DRAGON technology. This can lead to erroneous entry secondary to incorrect interpretation by the dictating instrument. HPI: 29-year-old female presents for evaluation of vaginal discomfort. She reports itching, pain with wiping without vaginal bleeding, vaginal discharge, hematuria. She reports intermittent dysuria. Patient was recently seen in the ED treated for an allergic reaction to Accutane. She states the prednisone and Benadryl have resolved the hives though vaginal discomfort persist. This all started around the same time. Has an appointment to see her DIRECTOR OF NURSES REGISTRY in 2 weeks. LMP was 12/30. PMH: Denied PSH: Denied Allergies: Denied Social Hx: Denied drug or alcohol abuse Allergies: Coded Allergies: PENICILLINS (Unverified Allergy, Severe, 08/29/14) MINOCYCLINE (Verified Allergy, Intermediate, Hives, 01/26/20) COVID-19 Screening Contact w/high risk pt: No Experienced COVID-19 symptoms?: No COVID-19 Testing performed PSYCH NURSE: No Patient History Last Menstrual Period: 12/31/2019 Now: No : 1 Para: 1 Nursing Documentation-PMH Past Medical History: No Stated History Hx Hypertension: No Hx Diabetes: No Review of Systems All Other Systems: negative except mentioned in HPI Physical Exam Vital Signs Date Time Temp Pulse Resp B/P (MAP) Pulse Ox O2 Delivery O2 Flow Rate FiO2 01/26/20 03:27 98.2 72 18 130/87 (101) 96 Room Air General: Awake and alert, no acute distress HEENT: NC/AT. EOMI. Resp: Normal work of breathing Abdomen: Soft, nontender, nondistended. Obese abdomen. : Normal-appearing external genitalia. No ulcers, no vesicles, no breakdown, no discharge. Skin: Intact. No abrasions, laceration or rash over the exposed skin. Trace to moderate mono mucus. No bleeding. No thick or particularly foul-smelling discharge. MSK: Normal tone and bulk. Moving all extremities. No obvious deformity. Neuro: Awake and alert. Mentating appropriately Medical Decision Making Diagnostic Impression: Primary Impression: Vaginitis ER Course 29-year-old female presents for evaluation of vaginal discomfort. Differential includes was not limited to persistent allergic reaction, vaginitis, vulvovaginitis, STI, UTI, BV, trichomonas, yeast infection and to name a few. Urinalysis returned unremarkable. hCG negative. Wet mount showed no evidence of BV, trichomonas or yeast infection. Symptoms are consistent with a vaginitis but the cause of this is yet unknown. She will require further work- up by her DIRECTOR OF NURSES REGISTRY. Recommended pH balanced feminine hygiene soaps and prompt follow-up with DIRECTOR OF NURSES REGISTRY. Can return with new or worsening symptoms. She understands and agrees with this treatment plan. Laboratory Tests Test 01/26/20 03:36 Urine Color Yellow Urine Appearance Clear Urine pH 6 (4.5-8.0) Urine Specific [place] 1.025 (1.005-1.035) Urine Protein Negative (NEGATIVE) Urine Glucose (UA) Negative (NEGATIVE) Urine Ketones Negative (NEGATIVE) Urine Blood 2+ (NEGATIVE) H Urine Nitrite Negative (NEGATIVE) Urine Bilirubin Negative (NEGATIVE) Urine Urobilinogen Normal MG/DL (0.0-1.0) Urine Leukocyte Esterase 1+ (NEGATIVE) H Urine RBC 0-2 /HPF (0 - 2) Urine WBC 0-2 /HPF (0 - 2) Urine Squamous Epithelial Cells Few /LPF (NONE/OCC) Urine Bacteria Few /HPF (NONE) Urine HCG, Qualitative Negative (NEGATIVE) Microbiology Date/Time Source Procedure Growth Status 01/26/20 03:54 Vaginal Wet Prep - Final Complete Last Vital Signs Date Time Temp Pulse Resp B/P (MAP) Pulse Ox O2 Delivery O2 Flow Rate FiO2 01/26/20 03:30 98.2 75 18 125/72 98 Room Air Disposition: HOME, SELF-CARE Condition: Stable Referrals: NON PHYSICIAN (PCP) Velasquez Lees MD Jan 26, 2020 03:55
[2020-01-26 04:50] VITALS: BP 130/80
== END 2020-01-26 04:50 | disposition home or self-care (01) ==
LOC: EMR 03:45
DX: N76.0 Acute vaginitis (principal); Z88.0 Allergy status to penicillin
CPT/HCPCS: 81003; 81025; 87210; Z7502; 99283

== ENCOUNTER 2020-02-03 18:07 | Emergency (ER) | payer MEDICAID ==
[~2020-02-03] VITALS: Ht 167.6 cm; Wt 104.3 kg
[2020-02-03 18:25] VITALS: BP 130/67
--- NOTE | 2020-02-03 18:31 | Emergency Room Report ---
History of Present Illness General Chief Complaint: Earache Source: Patient Present Illness HPI 29-year-old female with no known significant past medical history here complaining of having foreign body sensation right ear. Patient was playing with her daughter and feels like maybe the earring inside her ear as she cannot find anywhere else. Denies any pain in the ear, denies any pressure, hearing loss, vertigo or dizziness. Denies any pus drainage or bleeding to the ear. Denies any tinnitus and hearing loss. Denies all other associated symptoms. Allergies: Coded Allergies: PENICILLINS (Unverified Allergy, Severe, 08/29/14) MINOCYCLINE (Verified Allergy, Intermediate, Hives, 01/26/20) COVID-19 Screening Contact w/high risk pt: No Experienced COVID-19 symptoms?: No COVID-19 Testing performed IMAGER: No Patient History Past Medical History: see triage record Past Surgical History: none Pertinent Family History: none Last Menstrual Period: 01/27/20 Now: No Immunizations: UTD Reviewed Nursing Documentation: PMH: Agreed; PSxH: Agreed Nursing Documentation-PMH Past Medical History: No History, Except For Hx Hypertension: No Hx Diabetes: No Review of Systems All Other Systems: negative except mentioned in HPI Physical Exam Vital Signs Date Time Temp Pulse Resp B/P (MAP) Pulse Ox O2 Delivery O2 Flow Rate FiO2 02/03/20 18:13 98.1 100 18 130/67 (88) 99 Room Air Sp02 EP Interpretation: reviewed, normal General Appearance: well appearing, no apparent distress Head: normocephalic, atraumatic ENT: hearing grossly normal, normal voice, other - No foreign body noted in the right ear Neck: full range of motion, supple Respiratory: chest non-tender, lungs clear, no respiratory distress, speaking full sentences Cardiovascular #1: normal inspection, normal peripheral pulses, regular rate, rhythm Gastrointestinal: soft Genitourinary: no CVA tenderness Musculoskeletal: normal inspection, gait/station normal Neurologic: alert, oriented Psychiatric: normal inspection, judgement/insight normal Skin: no rash Lymphatic: no adenopathy Medical Decision Making PA Attestation All my diagnosis and treatment plans were reviewed ad discussed with my supervising physician Dr. Driscoll Diagnostic Impression: Primary Impression: Foreign body sensation in right ear canal ER Course 29-year-old female with no known significant past medical history here complaining of having foreign body sensation right ear. Patient was playing with her daughter and feels like maybe the earring inside her ear as she cannot find anywhere else. Denies any pain in the ear, denies any pressure, hearing loss, vertigo or dizziness. Denies any pus drainage or bleeding to the ear. Denies any tinnitus and hearing loss. Denies all other associated symptoms. Ddx considered but are not limited to: Otitis media, otitis externa, TM perforation,, foreign body in ear Vital signs: are WNL, pt. is afebrile H&PE are most consistent with: Foreign body sensation ER however no foreign body noted ORDERS: rapid strep test, rapid influenza test ED INTERVENTIONS: None required at this time. DISCHARGE: At this time pt. is stable for d/c to home. Will provide printed patient care instructions, and any necessary prescriptions. Care plan and follow up instructions have been discussed with the patient prior to discharge. No. In the ear canal is clear. Patient to follow primary doctor, if worsening symptoms return to the emergency room. Last Vital Signs Date Time Temp Pulse Resp B/P (MAP) Pulse Ox O2 Delivery O2 Flow Rate FiO2 02/03/20 18:25 98.1 18 130/67 99 Room Air 02/03/20 18:13 100 Disposition: HOME, SELF-CARE Condition: Stable Elsy Barfield Feb 03, 2020 18:31
[2020-02-03 18:36] VITALS: BP 130/67
== END 2020-02-03 19:00 | disposition home or self-care (01) ==
LOC: EMR 18:57
DX: H93.8X1 Other specified disorders of right ear (principal); Z88.0 Allergy status to penicillin; Z88.8 Allergy status to other drugs, medicaments and biological substances
CPT/HCPCS: 99281

== ENCOUNTER 2020-04-14 20:28 | Emergency (ER) | payer MEDICAID ==
[~2020-04-14] VITALS: Ht 167.6 cm; Wt 103.0 kg
[2020-04-14 20:52] VITALS: BP 113/74
[2020-04-14] MEDS ORDERED: DIPHENHYDRAMINE25 M1 ORAL (20:55)
[2020-04-14] MEDS ORDERED: PREDNISONE20 MG ORAL (20:55)
[2020-04-14] MEDS ORDERED: FAMOTIDINE20 MG ORAL (20:55)
[2020-04-14 21:06] VITALS: BP 108/70
--- NOTE | 2020-04-17 08:31 | Emergency Room Report ---
History of Present Illness General Chief Complaint: Allergic Reaction Source: Patient Present Illness HPI 29-year-old female presents for evaluation. States that she is having allergic reaction to Bactrim. Started 2 days ago. 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 Has other antibiotic allergies. Denies throat swelling or tongue swelling. Notes a generalized rash to her body. Denies shortness of breath. No other aggravating relieving factors. Denies any other associated symptoms Allergies: Coded Allergies: PENICILLINS (Unverified Allergy, Severe, 08/29/14) MINOCYCLINE (Verified Allergy, Intermediate, Hives, 01/26/20) COVID-19 Screening Contact w/high risk pt: No Experienced COVID-19 symptoms?: No COVID-19 Testing performed DIRECTOR PATIENT: No Patient History Past Medical History: none Past Surgical History: none Pertinent Family History: none Social History: Denies: smoking, alcohol use, drug use Last Menstrual Period: started today Now: No Immunizations: UTD Reviewed Nursing Documentation: PMH: Agreed; PSxH: Agreed Nursing Documentation-PMH Past Medical History: No History, Except For Hx Hypertension: No Hx Diabetes: No Review of Systems All Other Systems: negative except mentioned in HPI Physical Exam Vital Signs Date Time Temp Pulse Resp B/P (MAP) Pulse Ox O2 Delivery O2 Flow Rate FiO2 04/14/20 20:30 98.2 86 15 113/74 (87) 94 Room Air Sp02 EP Interpretation: reviewed, normal General Appearance: no apparent distress, alert, GCS 15, non-toxic Head: normocephalic, atraumatic Eyes: bilateral eye normal inspection, bilateral eye PERRL ENT: hearing grossly normal, normal pharynx, no angioedema, normal voice Neck: full range of motion, supple/symm/no masses Respiratory: chest non-tender, lungs clear, normal breath sounds, speaking full sentences Cardiovascular #1: regular rate, rhythm, no edema Cardiovascular #2: 2+ carotid (R), 2+ carotid (L), 2+ radial (R), 2+ radial (L), 2+ dorsalis pedis (R), 2+ dorsalis pedis (L) Gastrointestinal: normal bowel sounds, non tender, soft, non-distended, no guarding, no rebound Rectal: deferred Genitourinary: normal inspection, no CVA tenderness Musculoskeletal: back normal, normal range of motion, gait/station normal, non- tender Neurologic: alert, motor strength/tone normal, oriented x3, sensory intact, responsive, speech normal Psychiatric: judgement/insight normal, memory normal, mood/affect normal, no suicidal/homicidal ideation Reflexes: 3+ bicep (R), 3+ bicep (L), 3+ tricep (R), 3+ tricep (L), 3+ knee (R), 3+ knee (L) Skin: other - diffuse urticaria Lymphatic: no adenopathy Medical Decision Making Diagnostic Impression: Primary Impression: Allergic reaction Qualified Codes: T78.40XA - Allergy, unspecified, initial encounter ER Course Hospital Course 29-year-old female presents with rash after taking Bactrim Differential diagnoses include: allergic reaction, angioedema, anaphylaxis Clinical course 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 After initial history physical exam reveals female in no acute distress. There is a diffuse urticarial reaction. No tongue swelling or throat swelling. Lungs clear. Vital stable. No signs of anaphylaxis or distress. Discussed findings with patient. Patient will discontinue the Bactrim. We will withhold any antibiotic for now until discussed with her marine fire fighter. We will treat the allergic reaction. Given prednisone, Benadryl, Pepcid here. Safe for discharge with close outpatient follow-up states she has a PMD i. I feel this is a highly complex case requiring extensive working including EKG/Rhythm strip, Xray/CT/US, Blood/urine lab work, repeat exams while in ED, and administration of strong opiates/narcotics for pain control, admission to hospital or close patient follow up. Diagnosis - allergic reaction Stable and discharged to home with prescriptions for Zantac, prednisone, Benadryl. Followup with PMD. Return to ED if symptoms recur or worsen Last Vital Signs Date Time Temp Pulse Resp B/P (MAP) Pulse Ox O2 Delivery O2 Flow Rate FiO2 04/14/20 21:06 98.2 65 15 108/70 94 Room Air Status: improved Disposition: HOME, SELF-CARE Condition: Stable Scripts Famotidine* (Pepcid 20mg tablet*) 20 Mg Tablet 20 MG ORAL DAILY for Gerd, #30 TAB 0 Refills Prov: David Noonan MD 04/14/20 Prednisone* (PREDNISONE*) 20 Mg Tablet 40 MG ORAL DAILY, #10 TAB Prov: David Noonan MD 04/14/20 Diphenhydramine Hcl* (DIPHENHYDRAMINE HCL*) 25 Mg Capsule 25 MG ORAL Q6H PRN for Itching, #30 CAP 0 Refills Prov: David Noonan MD 04/14/20 Patient Instructions: Drug Allergy David Noonan MD Apr 17, 2020 08:31
== END 2020-04-14 21:05 | disposition home or self-care (01) ==
LOC: EMR 20:58
DX: L27.0 Generalized skin eruption due to drugs and medicaments taken internally (principal); T36.8X5A Adverse effect of other systemic antibiotics, initial encounter; Y92.9 Unspecified place or not applicable; Z88.0 Allergy status to penicillin; Z88.1 Allergy status to other antibiotic agents
CPT/HCPCS: J7512; Z7502; 99282